=== PATIENT | female | born 2000 | race Caucasian/White ===

== ENCOUNTER 2021-01-21 23:53 | Emergency (ER) | payer OTHER ==
[2021-01-22] MEDS ORDERED: BENADRYL 50MG C50 MG PO (01:09)
[2021-01-22] MEDS ORDERED: PEPCID40 MG PO (01:09)
== END 2021-01-22 01:13 | disposition home or self-care (01) ==
LOC: ER1 23:53
DX: L50.1 Idiopathic urticaria (principal)
CPT/HCPCS: 96374; 96375; 99282; J1200; J2405; J2930

== ENCOUNTER 2021-03-11 19:55 | Emergency (ER) | payer OTHER ==
[~2021-03-11 19:55] MED LIST: BENADRYL 50MG C50 MG PO; PEPCID40 MG PO
[2021-03-11 20:46] LABS: HEMOGLOBIN 13.6 gm/dl (12.3-15.3); RED BLOOD COUNT 4.38 M/UL (4.00-5.10); WHITE BLOOD COUNT 8.5 K/UL (4.5-11.0)
[2021-03-11 21:07] LABS: BUN/CREATININE RATIO 14 (0-10)
== END 2021-03-11 22:16 | disposition home or self-care (01) ==
LOC: ER1 19:55
PROVIDERS: Family Medicine
DX: O99.891 Other specified diseases and conditions complicating pregnancy (principal); R10.9 Unspecified abdominal pain
CPT/HCPCS: 80053; 81001; 83605; 83690; 85025; 87086; 99284